=== PATIENT | male | born 1965 | race Caucasian/White ===

== ENCOUNTER 2017-01-05 15:53 | Emergency (ER) | payer OTHER ==
[~2017-01-05] VITALS: Ht 172.7 cm; Wt 137.4 kg
[2017-01-05 16:31] VITALS: BP 136/79
[2017-01-05] MEDS ORDERED: METF500T PO (16:36)
--- NOTE | 2017-01-05 16:36 | NUR ---
TO LOBBY AT THIS TIME,NO AVAIL. BED
--- NOTE | 2017-01-05 18:19 | NUR ---
PATIENT AMBULATED TO OF
--- NOTE | 2017-01-05 18:26 | NUR ---
PATIENT BEING EVAL. BY ERMD IN OF
[2017-01-05] MEDS ORDERED: KETOROLAC 60 MG/2 ML VIAL IM ONE (18:35)
[2017-01-05] MEDS ORDERED: cefTRIAXone 1,000 MG in LIDOCAINE 1% ED 2.1 ML IM ONE (18:40)
--- NOTE | 2017-01-05 18:42 | NUR ---
PATIENT TAKEN TO ULTRASOUND OF THE LT. LEG VIA WC
[2017-01-05 19:44] VITALS: BP 133/70
--- NOTE | 2017-01-05 19:45 | NUR ---
Patient discharged with v/s stable. Written and verbal after care instructions given and explained. Patient alert, oriented and verbalized understanding of instructions. Ambulatory with steady gait. All questions addressed prior to discharge. ID band removed. Patient advised to follow up with PMD. Rx of KELFEX, BACTRIN given. Patient educated on indication of medication including possible reaction and side effects. Opportunity to ask questions provided and answered.
== END 2017-01-05 19:45 | disposition home or self-care (01) ==
LOC: MED 15:53
DX: S81.812D Laceration without foreign body, left lower leg, subsequent encounter (principal); L03.116 Cellulitis of left lower limb; W26.8XXD Contact with other sharp object(s), not elsewhere classified, subsequent encounter; Y92.69 Other specified industrial and construction area as the place of occurrence of the external cause; Y99.8 Other external cause status
CPT/HCPCS: 90471; 90715; 93971; 96372; 99284; J0696; J1885; J2001